=== PATIENT | male | born 1990 | race Two or more races ===

== ENCOUNTER 2016-08-24 03:51 | Emergency (ER) | payer SELFPAY ==
[~2016-08-24] VITALS: Ht 185.4 cm; Wt 105.7 kg
[2016-08-24] MEDS ORDERED: ABILIFY20 MG ORAL (04:10)
[2016-08-24] MEDS ORDERED: IBUPROFEN600 MG ORAL (04:50)
[2016-08-24] MEDS ORDERED: AZITHROMYCIN250 MG ORAL (04:50)
--- NOTE | 2016-08-24 04:51 | Emergency Room Report ---
History of Present Illness General Chief Complaint: Fever Source: Patient Present Illness HPI This is a 26-year-old male who presents with chief complaint of headache, fever , congestion. Onset yesterday. Better with acetaminophen. He is visiting from [place]. No other complaint. No nausea no vomiting. No diarrhea. Allergies: Coded Allergies: No Known Allergies (Unverified , 08/24/16) Patient History Past Medical History: see triage record, old chart reviewed Past Surgical History: none Pertinent Family History: none Social History: Denies: smoking Immunizations: other Reviewed Nursing Documentation: PMH: Agreed, PSxH: Agreed Nursing Documentation-PMH History Of Psychiatric Problem: Yes - psychosis Review of Systems Eye: Reports: nose congestion, Denies: blurred vision, eye pain ENT: Reports: nose congestion, Denies: ear pain, throat swelling Respiratory: Denies: cough, shortness of breath Cardiovascular: Denies: chest pain, palpitations Gastrointestinal: Denies: abdominal pain, diarrhea, nausea, vomiting Musculoskeletal: Denies: back pain, joint pain Skin: Denies: rash Neurological: Reports: headache, Denies: numbness Endocrine: Denies: increased thirst, increased urine Hematologic/Lymphatic: Denies: easy bruising All Other Systems: negative except mentioned in HPI Physical Exam Vital Signs Date Time Temp Pulse Resp B/P Pulse Ox O2 Delivery O2 Flow Rate FiO2 08/24/16 03:59 98.4 83 18 114/79 96 Room Air vitals normal Sp02 EP Interpretation: reviewed, normal General Appearance: well appearing, no apparent distress, alert Head: normocephalic, atraumatic Eyes: bilateral eye EOMI, bilateral eye PERRL ENT: hearing grossly normal, normal pharynx, other - Sinus tenderness with percussion Neck: full range of motion, supple, no meningismus Respiratory: chest non-tender, lungs clear, normal breath sounds Cardiovascular #1: regular rate, rhythm, no murmur Gastrointestinal: normal bowel sounds, non tender, no mass, no organomegaly, no bruit, non-distended Musculoskeletal: back normal, gait/station normal, normal range of motion Psychiatric: mood/affect normal Skin: warm/dry Medical Decision Making Diagnostic Impression: Primary Impression: Sinusitis, acute maxillary Qualified Codes: J01.00 - Acute maxillary sinusitis, unspecified ER Course Patient with URI symptoms and sinusitis. No evidence of pneumonia. No evidence of sepsis. No evidence of meningitis. Will discharge home. Last Vital Signs Date Time Temp Pulse Resp B/P Pulse Ox O2 Delivery O2 Flow Rate FiO2 08/24/16 03:59 98.4 83 18 114/79 96 Room Air Status: improved Disposition: HOME, SELF-CARE Condition: Stable Scripts Azithromycin* (ZITHROMAX*) 250 Mg Tablet 250 MG ORAL DAILY, #6 TAB 0 Refills Take two tablets by mouth today, then take one tablet by mouth daily for four days Prov: RUDY RAYA M.D. 08/24/16 Ibuprofen* (MOTRIN*) 600 Mg Tablet 600 MG ORAL THREE TIMES A DAY, #30 TAB 0 Refills Prov: RUDY RAYA M.D. 08/24/16 Referrals: NOT CHOSEN [facility]/,REFERRING (PCP) Additional Instructions: Followup your DrLee in 7 days. Return if worse. RUDY RAYA M.D. Aug 24, 2016 04:51
[2016-08-24 04:59] VITALS: BP 111/78
[2016-08-24 05:00] VITALS: BP 114/79
== END 2016-08-24 05:03 | disposition home or self-care (01) ==
LOC: EMR 04:35
DX: J01.00 Acute maxillary sinusitis, unspecified (principal)
CPT/HCPCS: 99284